=== PATIENT | male | born 1955 | race Caucasian/White ===

== ENCOUNTER 2022-11-20 10:46 | Emergency (ER) | payer OTHER ==
[2022-11-20] MEDS ORDERED: IBUPROFEN 600 MG TABLET (FP) PO ONE ×2 (10:59→11:26)
[2022-11-20 11:01] VITALS: BP 151/87; PULSE 92; RESP 20; TEMP 98; BMI 42.0
== END 2022-11-20 12:17 | disposition home or self-care (01) ==
LOC: FER 10:46
DX: S90.32XA Contusion of left foot, initial encounter (principal); W20.8XXA Other cause of strike by thrown, projected or falling object, initial encounter
CPT/HCPCS: 73630-TC-LT; 99283-25

== ENCOUNTER 2024-01-12 10:00 | Emergency (ER) | payer OTHER ==
[2024-01-12 10:38] VITALS: BP 117/78; PULSE 96; RESP 20; TEMP 99.3; BMI 40.6
[2024-01-12] MEDS ORDERED: CEPHALEXIN MONOHYDRATE 500 MG CAPSULE (UD) ONE (10:39)
[2024-01-12] MEDS ORDERED: SULFAMETHOXAZOLE/TRIMETHOPRIM 800MG/160MG D.S. TABLET ONE (10:40)
[2024-01-12] MEDS: SULFAMETHOXAZOLE/TRIMETHOPRIM 800MG/160MG D.S. TABLET PO ONE (10:40)
[2024-01-12] MEDS: CEPHALEXIN MONOHYDRATE 500 MG CAPSULE (UD) PO ONE (10:40)
== END 2024-01-12 10:48 | disposition home or self-care (01) ==
LOC: FER 10:00
DX: L03.313 Cellulitis of chest wall (principal)
CPT/HCPCS: 99283-25

== ENCOUNTER 2024-01-13 07:05 | Inpatient (IN) | payer OTHER ==
[2024-01-13] MEDS ORDERED: ACETAMINOPHEN INJECTION 100 ML IVPB ONE (07:56)
[2024-01-13] MEDS: ACETAMINOPHEN 1000 MG/100 ML BAG IVPB ONE (08:40)
[2024-01-13] MEDS: SODIUM CHLORIDE 0.9% 1000 ML INFUS.BAG IV ONE (08:40)
[2024-01-13] MEDS: VANCOMYCIN 2,000 MG in DEXTROSE 5%-WATER - 250 ML IVPB ONE (08:42)
[2024-01-13 08:44] LABS: HEMATOCRIT 45.8 % (35.4-49); HEMOGLOBIN 15.3 G/dL (11.7-16.9); MCH 31.5 pg (25.7-33.7); MCHC 33.5 g/dl (32.0-35.9); MEAN PLT VOLUME 8.8 fl (7.5-11.1); PLATELET COUNT 170.3 10^3/uL (134-434); RBC 4.87 10^6/uL (4.00-5.60); WHITE BLOOD COUNT 15.4 10^3/uL (4.0-10.8)
[2024-01-13] MEDS: VANCOMYCIN 2,000 MG in DEXTROSE 5%-WATER - 500 ML IVPB ONE (08:46)
[2024-01-13 09:13] LABS: ALBUMIN 3.9 g/dl (3.4-5.0); BILIRUBIN,TOTAL 1.2 mg/dl (0.2-1); CALCIUM 8.6 mg/dl (8.5-10.1); CREATININE 1.3 mg/dl (0.6-1.3); POTASSIUM 3.9 mmol/L (3.5-5.1); TOT PROT 7.2 g/dl (6.4-8.2)
[2024-01-13 09:27] LABS: PLATELET ESTIMATE ADEQUATE
[2024-01-13] MEDS ORDERED: HEPARIN NA (PORCINE) 5,000 UNITS/ML 1ML VIAL ONE (10:36)
[2024-01-13] MEDS: HEPARIN NA (PORCINE) 5,000 UNITS/ML 1ML VIAL SQ SCH (10:45)
[2024-01-13] MEDS ORDERED: CEFAZOLIN SODIUM 2 GM VIAL IVPB SCH (18:15)
[2024-01-13] MEDS: PIPERACILLIN/TAZOB 4.5 GM 4.5 GM in DEXTROSE 5%-WATER 100 ML IVPB SCH (18:28)
[2024-01-13] MEDS: CEFAZOLIN SODIUM 2 GM VIAL IVPB SCH (18:30)
[2024-01-13] MEDS: CEFAZOLIN SODIUM 2 GM in DEXTROSE 5%-WATER 100 ML IVPB SCH (18:42)
[2024-01-13] MEDS: VANCOMYCIN PREMIX 1.5 GM 1,500 MG/300 ML BAG IVPB SCH (22:20)
[2024-01-14 08:53] LABS: ALBUMIN 3.4 g/dl (3.4-5.0); BILIRUBIN,TOTAL 0.8 mg/dl (0.2-1); CALCIUM 8.3 mg/dl (8.5-10.1); MAGNESIUM 1.8 mg/dL (1.8-2.4); PHOSPHOROUS 2.3 (2.5-4.9); POTASSIUM 4.1 mmol/L (3.5-5.1); TOT PROT 6.3 g/dl (6.4-8.2)
[2024-01-14 09:17] LABS: BASO % 0.3 % (0-2.0); EOS % 1.1 % (0-4.5); HEMATOCRIT 39.3 % (35.4-49); HEMOGLOBIN 13.1 GM/dL (11.7-16.9); MCH 31.2 pg (25.7-33.7); MCHC 33.4 g/dl (32.0-35.9); MEAN CELL VOLUME 93.3 fl (80-96); MEAN PLT VOLUME 8.6 fl (7.5-11.1); MONO % 8.2 % (3.8-10.2); NEUT % 79.4 % (42.8-82.8); PLATELET COUNT 170 10^3/uL (134-434); RBC 4.21 M/mm3 (4.00-5.60); RDW 13.7 % (11.9-15.9); WHITE BLOOD COUNT 11.6 K/mm3 (4.0-10.0)
[2024-01-14 16:42] VITALS: BMI 41.2
[2024-01-14] MEDS ORDERED: PIPERACILLIN/TAZOB 4.5 GM 4.5 GM in DEXTROSE 5%-WATER 100 ML IVPB SCH (18:00)
[2024-01-14] MEDS: ACETAMINOPHEN 325 MG TABLET (FP) PO PRN (22:13)
[2024-01-15] MEDS: VANCOMYCIN PREMIX 1.75 GM 1,750 MG/350 ML PIGGYBACK IVPB SCH (04:00)
[2024-01-16 10:10] LABS: ALBUMIN 3.5 g/dl (3.4-5.0); BILIRUBIN,TOTAL 0.3 mg/dl (0.2-1); CALCIUM 8.6 mg/dl (8.5-10.1); CREATININE 0.8 mg/dl (0.6-1.3); POTASSIUM 4.3 mmol/L (3.5-5.1); TOT PROT 6.5 g/dl (6.4-8.2)
[2024-01-16 10:55] LABS: BASO % 0.8 % (0-2.0); EOS % 3.5 % (0-4.5); HEMATOCRIT 41.8 % (35.4-49); HEMOGLOBIN 13.9 GM/dL (11.7-16.9); LYMPH % 21.4 % (8-40); MCH 31.5 pg (25.7-33.7); MCHC 33.3 g/dl (32.0-35.9); MEAN CELL VOLUME 94.7 fl (80-96); MEAN PLT VOLUME 8.8 fl (7.5-11.1); MONO % 8.4 % (3.8-10.2); NEUT % 65.9 % (42.8-82.8); PLATELET COUNT 211 10^3/uL (134-434); RBC 4.42 M/mm3 (4.00-5.60); RDW 14.1 % (11.9-15.9); WHITE BLOOD COUNT 6.2 K/mm3 (4.0-10.0)
[2024-01-16] MEDS: CLINDAMYCIN 600MG PREMIX IVPB 600 MG/50 ML BAG IVPB SCH (18:42)
[2024-01-17 05:51] LABS: BLOOD UREA NITROGEN 18.7 mg/dL (7-18); CHLORIDE 111 mmol/L (98-107); CREATININE 0.8 mg/dL (0.55-1.3); GLUCOSE,RANDOM 104 mg/dL (74-106); POTASSIUM 4.3 mmol/L (3.5-5.1); SODIUM 138 mmol/L (136-145)
[2024-01-17 05:52] LABS: CALCIUM 8.3 mg/dL (8.5-10.1); CO2 25 mmol/L (21-32)
[2024-01-17] MEDS: VANCOMYCIN PREMIX 1.5 GM 1,500 MG/300 ML BAG IVPB SCH (06:02)
[2024-01-18 08:50] LABS: ALBUMIN 3.7 g/dl (3.4-5.0); BILIRUBIN,TOTAL 0.4 mg/dl (0.2-1); CALCIUM 8.9 mg/dl (8.5-10.1); CREATININE 0.8 mg/dl (0.6-1.3); POTASSIUM 4.6 mmol/L (3.5-5.1); TOT PROT 6.9 g/dl (6.4-8.2)
[2024-01-18 10:15] LABS: BASO % 0.5 % (0-2.0); HEMATOCRIT 42.8 % (35.4-49); HEMOGLOBIN 14.3 GM/dL (11.7-16.9); LYMPH % 17.8 % (8-40); MCH 31.6 pg (25.7-33.7); MCHC 33.5 g/dl (32.0-35.9); MEAN CELL VOLUME 94.4 fl (80-96); MEAN PLT VOLUME 8.3 fl (7.5-11.1); MONO % 6.1 % (3.8-10.2); NEUT % 73.6 % (42.8-82.8); PLATELET COUNT 258 10^3/uL (134-434); RBC 4.53 M/mm3 (4.00-5.60); RDW 13.7 % (11.9-15.9); WHITE BLOOD COUNT 9.3 K/mm3 (4.0-10.0)
[2024-01-19] MEDS ORDERED: MELATONIN 5 MG TABLETS PO PRN (00:37)
[2024-01-19] MEDS: ACETAMINOPHEN 1000 MG/100 ML BAG IVPB ONE (03:08)
[2024-01-19 06:31] VITALS: RESP 18
[2024-01-19] MEDS: COLCHICINE 0.6 MG CAP PO ONE (09:51)
[2024-01-19 11:47] VITALS: BP 116/62; PULSE 66; TEMP 97.8
== END 2024-01-19 16:09 | disposition home or self-care (01) | DRG 603 ==
LOC: FER 07:05 → FM/S 08:59
PROVIDERS: ADMIT Internal Medicine; ATTEND Internal Medicine
PROC: 0J9D3ZZ Drainage of Right Upper Arm Subcutaneous Tissue and Fascia, Percutaneous Approach (ICD-10-PCS; principal; 2024-01-14)
DX: L03.113 Cellulitis of right upper limb (principal); L03.319 Cellulitis of trunk, unspecified; Z68.41 Body mass index [BMI] 40.0-44.9, adult; E66.01 Morbid (severe) obesity due to excess calories; L08.9 Local infection of the skin and subcutaneous tissue, unspecified; A49.02 Methicillin resistant Staphylococcus aureus infection, unspecified site; D72.829 Elevated white blood cell count, unspecified
CPT/HCPCS: 36415; 71250-TC; 76604; 80048; 80053; 83036; 83735; 84100; 84443; 85025; 85027; 87040; 87070; 87075; 87186; 87205; 99285-25; G0480; J0131; J1644; J3370

== ENCOUNTER 2024-05-09 07:16 | Day surgery (SDC) | payer OTHER ==
[2024-04-25 09:25] VITALS: BMI 38.1
[2024-05-09] MEDS ORDERED: oxyCODONE HCL 5 MG TABLET PO PRN ×2 (08:58)
[2024-05-09] MEDS ORDERED: LACTATED RINGERS SOLUTION 1,000 ML IV SCH (09:00)
[2024-05-09] MEDS ORDERED: FENTANYL CITRATE/PF 50 MCG/ML VIAL ONE ×2 (09:16→14:42)
[2024-05-09] MEDS ORDERED: MIDAZOLAM HCL 2 MG/2 ML SINGLE DOSE VIAL ONE ×2 (09:16→12:07)
[2024-05-09] MEDS ORDERED: BUPIVACAINE HCL/PF 0.5% (5MG/ML) 10 ML VIAL ONE (09:17)
[2024-05-09] MEDS ORDERED: BUPIVACAINE HCL/PF 2.5 MG/ML - 30 ML VIAL IJ ONE (09:17)
[2024-05-09] MEDS ORDERED: ceFAZolin SODIUM 1 GM VIAL ONE ×2 (09:28→10:46)
[2024-05-09] MEDS ORDERED: VANCOMYCIN 1,000 MG VIAL (RESTRICTED TO ID ONLY) ONE ×2 (09:28→10:46)
[2024-05-09] MEDS ORDERED: PROPOFOL 20 ML ONE (10:39)
[2024-05-09] MEDS ORDERED: DEXAMETHASONE SOD PHOSPHATE 4 MG/1 ML VIAL ONE (10:46)
[2024-05-09] MEDS ORDERED: ONDANSETRON 4 MG/2 ML VIAL ONE (10:46)
[2024-05-09] MEDS ORDERED: DEXMEDETOMIDINE HCL 200 MCG/2 ML IVPB ONE (10:53)
[2024-05-09] MEDS ORDERED: BUPIVICAINE 0.25%/MORPH PF/KETOROLAC - 51ML DISP.SYRINGE IA ONE (12:00)
[2024-05-09] MEDS ORDERED: PROPOFOL 40 ML ONE (12:19)
[2024-05-09] MEDS ORDERED: ePHEDrine SULFATE 50 MG/1 ML AMPULE ONE (12:43)
[2024-05-09] MEDS: VANCOMYCIN 1,000 MG VIAL (RESTRICTED TO ID ONLY) IVPB ONE ×2 (12:53)
[2024-05-09] MEDS: BUPIVACAINE HCL/PF 0.25% (2.5MG/ML) 10 ML VIAL IJ ONE ×2 (13:11)
[2024-05-09] MEDS: morphine SULFATE/PF 1 MG/2 ML (2cc Syringe - QUVA) IV ONE ×2 (13:11)
[2024-05-09] MEDS: KETOROLAC TROMETHAMINE 30 MG/1 ML VIAL IM ONE ×2 (13:11)
[2024-05-09] MEDS ORDERED: MAGNESIUM HYDROX 2400MG/30ML ORAL SUSPENSION 30 ML CUP PO PRN (14:01)
[2024-05-09] MEDS ORDERED: MAG HYDROX/AL HYDROX/SIMETH 30 ML UNIT-DOSE CUP PO PRN (14:01)
[2024-05-09] MEDS ORDERED: ONDANSETRON 4 MG/2 ML VIAL IVPUSH PRN (14:01)
[2024-05-09] MEDS: ACETAMINOPHEN 1000 MG/100 ML BAG IVPB ONE ×2 (14:35→15:54)
[2024-05-09] MEDS: KETOROLAC TROMETHAMINE 30 MG/1 ML VIAL IVPUSH SCH (14:36)
[2024-05-09] MEDS: LACTATED RINGERS SOLUTION 1,000 ML IV SCH (15:00)
[2024-05-09] MEDS: CEFAZOLIN 3 GM in DEXTROSE 5%-WATER - 100 ML IVPB SCH (17:44)
[2024-05-09] MEDS: ACETAMINOPHEN 500 MG TABLET (FP) PO SCH (20:15)
[2024-05-09 20:33] VITALS: RESP 16
[2024-05-09] MEDS: GABAPENTIN 300 MG CAPSULE PO SCH (21:32)
[2024-05-09] MEDS: SENNOSIDES/DOCUSATE COMBO (SENNA PLUS) TABLET (UD) PO SCH (21:32)
[2024-05-09] MEDS: oxyCODONE HCL 10 MG SUSTAINED ACTING TABLET PO SCH (21:33)
[2024-05-10] MEDS: oxyCODONE HCL 5 MG TABLET PO PRN ×2 (06:01→09:14)
[2024-05-10 07:53] LABS: HEMATOCRIT 40.6 % (35.4-49); HEMOGLOBIN 13.2 G/dL (11.7-16.9); MCH 30.6 pg (25.7-33.7); MCHC 32.5 g/dl (32.0-35.9); MEAN CELL VOLUME 94.1 fl (80-96); MEAN PLT VOLUME 8.6 fl (7.5-11.1); RBC 4.31 10^6/uL (4.00-5.60); RDW 13.9 % (11.9-15.9); WHITE BLOOD COUNT 6.7 10^3/uL (4.0-10.8)
[2024-05-10 08:11] VITALS: PULSE 64
[2024-05-10] MEDS: PANTOPRAZOLE 40 MG TABLET PO SCH (09:13)
[2024-05-10] MEDS: MULTIVITAMINS (DAILY MVI) TABLET (FP) PO SCH (09:13)
[2024-05-10] MEDS: DOCUSATE SODIUM 100 MG CAPSULE (FP) PO SCH (09:13)
[2024-05-10] MEDS: ASPIRIN COATED 81 MG TABLET.EC PO SCH (09:14)
[2024-05-10 10:25] LABS: CALCIUM 8.1 mg/dl (8.5-10.1); CREATININE 1.1 mg/dl (0.6-1.3); POTASSIUM 4.3 mmol/L (3.5-5.1)
[2024-05-10 12:04] VITALS: BP 105/60; TEMP 98.3
== END 2024-05-10 16:15 | disposition home health service (06) ==
LOC: FASU 07:16 → FASUSAT 07:16 → SUATTDRO 07:16 → FM/S 15:31 → FASUSAT 05-10 16:15
PROVIDERS: ATTEND Family Medicine
PROC: 8E0Y0CZ Robotic Assisted Procedure of Lower Extremity, Open Approach (ICD-10-PCS; 2024-05-09)
PROC: 0SRB0JA Replacement of Left Hip Joint with Synthetic Substitute, Uncemented, Open Approach (ICD-10-PCS; principal; 2024-05-09 11:01)
DX: M16.12 Unilateral primary osteoarthritis, left hip (principal)
CPT/HCPCS: 20985; 27130; C1776; S2900; 36415; 73502-TC-LT-FY; 80048; 85027; 88305-TC; 88311-TC; 94760; 97010-GP; 97116-GP; 97162-GP; J0131

== ENCOUNTER 2024-08-01 12:57 | Emergency (ER) | payer OTHER ==
[2024-08-01 13:11] VITALS: BP 143/101; PULSE 82; RESP 18; TEMP 97; BMI 38.0
== END 2024-08-01 13:28 | disposition home or self-care (01) ==
LOC: FER 12:57
DX: L03.032 Cellulitis of left toe (principal)
CPT/HCPCS: 99283-25